=== PATIENT | male | born 1980 | race Caucasian/White ===

== ENCOUNTER 2023-02-02 13:23 | Inpatient (IN) | payer SELFPAY ==
[~2023-02-02] VITALS: Ht 162.6 cm; Wt 54.4 kg
[2023-02-02] MEDS ORDERED: ONDANSETRON HCL 4MG/2ML INJ IV STA (15:46)
[2023-02-02] MEDS ORDERED: MORPHINE SULFATE 4 MG/ML CPJ (NOT FOR IM USE) IV STA (15:46)
[2023-02-02] MEDS ORDERED: SODIUM CHLORIDE 0.9% 1,000 ML IV ONE (16:00)
[2023-02-02 16:24] LABS: CHLORIDE 97 mEq/L (98-107)
[2023-02-02 16:27] LABS: BASOPHILS % 0.4 % (0.0-2.0); EOSINOPHILS % 0.9 % (0.0-5.0); HEMATOCRIT. 51.2 % (42.0-52.0); HEMOGLOBIN. 17.8 g/dL (14.0-18.0); LYMPHOCYTES % 20.2 % (20.0-50.0); MEAN CORPUSCULAR HEMOGLOBIN 31.4 pg (28.0-32.0); MEAN CORPUSCULAR VOLUME 90.3 fL (80.0-94.0); MEAN PLATELET VOLUME 8.2 fl (7.4-10.4); MONOCYTES % 10.8 % (2.0-8.0); NEUTROPHILS % 67.7 % (40.0-76.0); PLATELET 377 x1000/uL (130-400); RED BLOOD CELL COUNT 5.68 mill/uL (4.7-6.1); RED CELL DISTRIBUTION WIDTH 12.4 % (11.6-14.6)
[2023-02-02 16:33] LABS: ETHANOL BLOOD < 10 mg/dL (-10)
[2023-02-02 17:24] LABS: INR 1.1; PROTHROMBIN TIME 11.6 sec (9.6-11.0)
[2023-02-02 17:51] LABS: CLARITY URINE CLOUDY (CLEAR); COLOR URINE DARK YELLOW (YELLOW); KETONES URINE 3+ (NEGATIVE); LEUKOCYTE ESTERASE URINE NEGATIVE (NEGATIVE); NITRITE URINE NEGATIVE (NEGATIVE); OCCULT BLOOD URINE NEGATIVE (NEGATIVE); PH URINE 5.5 (4.5-8.0); PROTEIN URINE 1+ (NEGATIVE); SPECIFIC GRAVITY URINE 1.028 (1.005-1.030); UROBILINOGEN URINE 0.2 E.U./dL (0.2-1.0)
[2023-02-02] MEDS ORDERED: IBUP-2899 (23:08)
[2023-02-03] MEDS: SODIUM CHLORIDE 0.9% 1,000 ML IV SCH ×2 (00:02→12:01)
[2023-02-03 00:37] VITALS: BP 114/73; PULSE 89; RESP 18; TEMP 99
[2023-02-03 00:38] LABS: HEMATOCRIT. 43.1 % (42.0-52.0); HEMOGLOBIN. 15.2 g/dL (14.0-18.0); MEAN CORPUSCULAR HEMOGLOBIN 31.6 pg (28.0-32.0); MEAN CORPUSCULAR VOLUME 89.4 fL (80.0-94.0); MEAN PLATELET VOLUME 7.9 fl (7.4-10.4); PLATELET 301 x1000/uL (130-400); RED BLOOD CELL COUNT 4.82 mill/uL (4.7-6.1); RED CELL DISTRIBUTION WIDTH 12.2 % (11.6-14.6)
[2023-02-03 07:32] LABS: PLATELET ESTIMATE NORMAL
[2023-02-03] MEDS: MORPHINE SULFATE 2 MG/ML CPJ (NOT FOR IM USE) IV PRN ×2 (09:07→19:34)
[2023-02-03] MEDS: ONDANSETRON HCL 4MG/2ML INJ IV PRN (09:07)
[2023-02-03 11:00] LABS: CHLORIDE 105 mEq/L (98-107)
[2023-02-03 12:00] VITALS: BP 115/68; PULSE 71; RESP 18; TEMP 98.1
[2023-02-03] MEDS ORDERED: NALOXONE HCL 0.4MG/ML VIAL IV PRN (12:45)
[2023-02-03] MEDS: PANTOPRAZOLE SODIUM 40 MG/VIAL IV SCH (14:47)
[2023-02-03 16:00] VITALS: BP 108/72; PULSE 82; RESP 18; TEMP 98.2
[2023-02-03 20:00] VITALS: BP 120/61; PULSE 83; RESP 19; TEMP 97.7
[2023-02-03] MEDS ORDERED: KETOROLAC 30MG/ML VIAL IM PRN (20:45)
[2023-02-04] VITALS: BP 132/78; PULSE 78; RESP 19; TEMP 99
[2023-02-04] MEDS: ONDANSETRON HCL 4MG/2ML INJ IV PRN ×3 (00:07→23:46)
[2023-02-04] MEDS: SODIUM CHLORIDE 0.9% 1,000 ML IV SCH ×2 (00:12→12:50)
[2023-02-04 04:00] VITALS: BP 115/70; PULSE 76; RESP 19; TEMP 98.8
[2023-02-04 08:00] VITALS: BP 113/70; PULSE 78; RESP 18; TEMP 98.6
[2023-02-04] MEDS: PANTOPRAZOLE SODIUM 40 MG/VIAL IV SCH (09:37)
[2023-02-04] MEDS: KETOROLAC 30MG/ML VIAL IV PRN ×2 (09:44→23:46)
[2023-02-04 20:00] VITALS: BP 140/53; PULSE 65; RESP 19; TEMP 97.9
[2023-02-05] VITALS: BP 123/70; PULSE 61; RESP 19; TEMP 97.3
[2023-02-05 04:00] VITALS: BP 145/76; PULSE 62; RESP 19; TEMP 98.6
[2023-02-05] MEDS: ONDANSETRON HCL 4MG/2ML INJ IV PRN ×3 (05:42→14:41)
[2023-02-05] MEDS: KETOROLAC 30MG/ML VIAL IV PRN ×2 (05:42→14:41)
[2023-02-05] MEDS: SODIUM CHLORIDE 0.9% 1,000 ML IV SCH ×3 (05:43→22:56)
[2023-02-05 08:00] VITALS: BP 131/73; PULSE 62; RESP 18; TEMP 98.1
[2023-02-05] MEDS ORDERED: DIATR MEGLU/DIATRIZOATE SOLN 120ML ONE (08:19)
[2023-02-05] MEDS: PANTOPRAZOLE SODIUM 40 MG/VIAL IV SCH (09:17)
[2023-02-05 10:08] LABS: CHLORIDE 109 mEq/L (98-107)
[2023-02-05 10:21] LABS: AMYLASE 94 IU/L (25-115)
[2023-02-05 12:00] VITALS: BP 133/80; PULSE 69; RESP 18; TEMP 97.5
[2023-02-05 14:01] LABS: AMYLASE 97 IU/L (25-115)
[2023-02-05 16:00] VITALS: BP 135/67; PULSE 63; RESP 18; TEMP 97.4
[2023-02-05 20:00] VITALS: BP 111/54; PULSE 58; RESP 18; TEMP 98.1
[2023-02-06] VITALS: BP 122/62; PULSE 68; RESP 20; TEMP 97.8
[2023-02-06 04:00] VITALS: BP 136/78; PULSE 63; RESP 20; TEMP 97.5
[2023-02-06] MEDS: KETOROLAC 30MG/ML VIAL IV PRN ×2 (06:46→17:34)
[2023-02-06 08:00] VITALS: BP 134/72; PULSE 68; RESP 18; TEMP 97.9
[2023-02-06] MEDS: PANTOPRAZOLE SODIUM 40 MG/VIAL IV SCH (10:43)
[2023-02-06] MEDS: SODIUM CHLORIDE 0.9% 1,000 ML IV SCH (10:43)
[2023-02-06 12:00] VITALS: BP 128/68; PULSE 70; RESP 18; TEMP 97.8
[2023-02-06 16:00] VITALS: BP 135/65; PULSE 65; RESP 18; TEMP 97.5
[2023-02-06] MEDS: ONDANSETRON HCL 4MG/2ML INJ IV PRN (17:34)
[2023-02-06 18:18] VITALS: BP 135/65; PULSE 65; TEMP 97.5; O2SAT 100
[2023-02-07] MEDS ORDERED: FAMOTIDINE 20MG/2ML VIAL IV SCH (09:00)
== END 2023-02-06 20:00 | disposition home or self-care (01) | DRG 247 ==
LOC: ER 13:23 → EDBEDREQ 19:09 → EDBEDREQTM 19:09 → ENRESERV 20:32 → 7WST 21:04
PROVIDERS: ADMIT Internal Medicine; ATTEND Internal Medicine
DX: K56.609 Unspecified intestinal obstruction, unspecified as to partial versus complete obstruction (principal); Z88.0 Allergy status to penicillin; K56.2 Volvulus
CPT/HCPCS: 36415; 71045; 74018; 74176; 74250; 80048; 80053; 80076; 80320; 81003; 82150; 83605; 85025; 86850; 86900; 93005; 99285; C9113; J1885; J2270; J2405; J7030; Q9963; G0480